=== PATIENT | female | born 1975 | race Caucasian/White ===

== ENCOUNTER → 2020-01-09 | Outpatient (CLI) | payer BC ==
--- NOTE | 2020-01-09 09:19 | MM ---
Reason for exam: screening (asymptomatic). Baseline mammogram. History: Excisional biopsy of the left breast, 1994. Physical Findings: Nurse did not find any significant physical abnormalities on exam. MG Screening Mammo w CAD Bilateral CC and MLO view(s) were taken. The breast tissue is extremely dense which could obscure a lesion on mammography. Finding: There is a typically benign 13 x 23 mm equal density (isodense), circumscribed oval mass located 4 cm from the nipple in the middle position of the right breast. These results were verbally communicated with the patient and result sheet given to the patient on 01/09/20. ASSESSMENT: Incomplete: need additional imaging evaluation, BI-RAD 0 RECOMMENDATION: Ultrasound of the right breast.
--- NOTE | 2020-01-09 09:21 | USB ---
Reason for exam: additional evaluation requested from abnormal screening. History: Excisional biopsy of the left breast, 1994. US Breast Workup Limited RT Right limited breast ultrasound including focal area of concern, retroareolar and axilla demonstrates a 0.6 x 0.5 x 0.5cm cystic lesion at 1 o'clock and a 1.9 x 1.3 x 1.1cm cystic cluster at 2 o'clock. These results were verbally communicated with the patient and result sheet given to the patient on 01/09/20. ASSESSMENT: Probably benign, BI-RAD 3 RECOMMENDATION: Follow-up diagnostic mammogram and ultrasound of the right breast in 6 months.
== END | disposition home or self-care (01) ==
LOC: RADMAMWWP 07:13
PROVIDERS: ATTEND Family Medicine
DX: Z12.31 Encounter for screening mammogram for malignant neoplasm of breast (principal); R92.8 Other abnormal and inconclusive findings on diagnostic imaging of breast
CPT/HCPCS: 77067

== ENCOUNTER → 2021-02-07 | Outpatient (CLI) | payer BC ==
--- NOTE | 2021-02-07 16:13 | CT ---
EXAMINATION TYPE: CT brain wo con DATE OF EXAM: 02/07/2021 COMPARISON: None. HISTORY: Dizziness and headaches x [address] DLP: 1015.3 mGycm. Automated Exposure Control for Dose Reduction was Utilized. TECHNIQUE: CT scan of the head is performed without contrast. FINDINGS: There is no acute intracranial hemorrhage, mass effect, or midline shift identified. The ventricles and sulci are within normal limits in size. Zendejas-white matter differentiation is maintain ed. The globes are intact and the visualized sinuses are clear. No suspicious opacification of mastoi d air cells. IMPRESSION: Unremarkable study.
== END | disposition home or self-care (01) ==
LOC: RADCTMAIN 14:05
PROVIDERS: ATTEND Family Medicine
DX: R42 Dizziness and giddiness (principal)
CPT/HCPCS: 70450